=== PATIENT | female | born 2000 | race Two or more races ===

== ENCOUNTER 2024-04-02 22:41 | Emergency (ER) | payer OTHER ==
[~2024-04-02] VITALS: Ht 167.6 cm; Wt 80.0 kg
[2024-04-02 23:18] LABS: Urine Bacteria None Seen /hpf (None Seen)
[2024-04-02 23:21] LABS: Basophils # (auto) 0 10 ^3/uL (0-0.2); Basophils % (auto) 0.3 % (0.0-2.0); Eosinophils # (auto) 0.1 10 ^3/uL (0-0.8); Eosinophils % (auto) 0.9 % (0.0-7.0); Hemoglobin 13.9 g/dL (12.2-16.2); Lymphocytes # (auto) 3.5 10 ^3/uL (0.4-5.4); Lymphocytes % (auto) 25.5 % (10.0-50.0); Mean Corpuscular Hemoglobin 31.1 pg (28.0-32.0); Mean Corpuscular Volume 91.5 fL (80.0-100.0); Monocytes # (auto) 0.8 10 ^3/uL (0-1.3); Monocytes % (auto) 5.9 % (0.0-12.0); Neutrophils # (auto) 9.3 10 ^3/uL (1.6-8.6); Neutrophils % (auto) 67.4 % (37.0-80.0); Nucleated Red Blood Cells % 0.1 %; Red Blood Cells 4.48 10^6/uL (4.0-5.20); Red Cell Distribution Width 13.2 % (11.8-14.3); White Blood Cell 13.8 10^3/uL (4.4-10.8)
[2024-04-02 23:35] LABS: Alanine Aminotransferase 19 U/L (7-40); Albumin 4.5 g/dL (3.2-4.8); Alkaline Phosphatase 85 U/L (46-116); Anion Gap 11 (5-15); Aspartate Aminotransferase 10 U/L (13-40); BUN/Creatinine Ratio 13.6 (10.0-20.0); Blood Urea Nitrogen 9 mg/dL (9-23); Calcium 9.7 mg/dL (8.7-10.4); Carbon Dioxide 22 mmol/L (20-30); Chloride 109 mmol/L (98-107); Glucose 113 mg/dL (74-106); Potassium 3.6 mmol/L (3.5-5.1); Sodium 142 mmol/L (136-145)
[2024-04-02 23:36] LABS: Bilirubin, Total 0.3 mg/dL (0.2-1.0)
[2024-04-02 23:47] LABS: Urine Blood Negative /uL (Negative); Urine Clarity Turbid (Clear); Urine Color Yellow (Yellow); Urine Mucus FEW (None Seen); Urine Protein, UAD 1+ (Negative); Urine Specific Gravity 1.033 (1.001-1.035); Urine Urobilinogen Normal (Negative); Urine WBC 33 /hpf (0 - 5); Urine pH 5.5 (5.0-9.0)
[2024-04-03] MEDS ORDERED: NITR-87 PO (00:14)
[2024-04-03] MEDS ORDERED: ACET500T58 PO (00:14)
[2024-04-03] MEDS ORDERED: ZOFR4T PO (00:14)
[2024-04-03] MEDS ORDERED: DICY10CA PO (00:14)
[2024-04-03] MEDS: ONDANSETRON HCL 4 MG/2 ML VIAL IM ONE (00:40)
[2024-04-03] MEDS: NITROFURANTOIN 100 mg CAP PO ONE (00:40)
[2024-04-03] MEDS: DICYCLOMINE HCL (10MG/ML) 2 ML AMPULE IM ONE (00:40)
[2024-04-03 00:48] VITALS: BP 116/67; PULSE 89; RESP 16; TEMP 97.6; O2SAT 98
== END 2024-04-03 00:46 | disposition home or self-care (01) ==
LOC: ER 22:41 → EEVIPCON 22:41 → ER 04-03 00:46
DX: N39.0 Urinary tract infection, site not specified (principal); R10.2 Pelvic and perineal pain
CPT/HCPCS: 36415; 80053; 81001; 84702; 85025; 96372; 99284; J0500; J2405